=== PATIENT | male | born 1990 | race Caucasian/White ===

== ENCOUNTER 2017-03-11 11:06 | Emergency (ER) | payer OTHER | END 2017-03-11 12:22 | disposition left against medical advice (07) | LOC: UCCORT 11:06 | DX: J11.1 Influenza due to unidentified influenza virus with other respiratory manifestations (principal); Z53.21 Procedure and treatment not carried out due to patient leaving prior to being seen by health care provider ==

== ENCOUNTER 2018-04-22 10:16 | Emergency (ER) | payer BC, OTHER ==
[2018-04-22 11:02] VITALS: BP 148/88
--- NOTE | 2018-04-22 11:21 | UC ---
Ear Complaint HPI - HPI Summary HPI Summary: 28-year-old male presents with complaints of 2 days of bilateral ear pain and fullness. Today he noticed some clear to justice colored drainage from both ears. States has had 4-5 days nasal congestion prior to onset of symptoms. Denies fever, chills, hearing loss, tinnitus, dizziness, vertigo, sore throat, or cough. 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 Negative: Sore Throat, Sinus Pain/Tenderness Respiratory: Negative: Shortness Of Breath, Cough Cardiovascular: Negative: Palpitations, Chest Pain Gastrointestinal: Negative: Abdominal Pain, Vomiting, Diarrhea, Nausea Genitourinary: Positive: Negative Musculoskeletal: Positive: Negative Neurological: Positive: Negative Is Patient Immunocompromised?: No Physical Exam - Summary Physical Exam Summary: GENERAL APPEARANCE: Well developed, well nourished, alert and cooperative, and appears to be in no acute distress. EYES: Conjunctiva clear. No drainage. Vision is grossly intact. EARS: External auditory canals with small amount soft cerumen. Bilateral tympanic membranes erythematous with effusion, right worse than left. Hearing grossly intact. NOSE: Mild-moderate nasal congestion with clear nasal discharge. THROAT: Pharynx normal. No tonsilar inflammation, swelling, exudate, or lesions. Uvula midline. Oral cavity normal. Teeth and gingiva in good general condition. NECK: Neck supple, non-tender without lymphadenopathy. CARDIAC: Normal S1 and S2. No S3, S4 or murmurs. Rhythm is regular. There is no peripheral edema, cyanosis or pallor. Extremities are warm and well perfused. Capillary refill is less than 2 seconds. Peripheral pulses intact. LUNGS: Clear to auscultation without rales, rhonchi, wheezing or diminished breath sounds. ABDOMEN: Positive bowel sounds. Soft, nondistended, nontender. No guarding or rebound. No masses or hepatosplenomegally. MUSKULOSKELETAL: ROM intact to all extremities. No joint erythema or tenderness. Normal muscular development. Normal gait. SKIN: Skin normal color, texture and turgor with no lesions or eruptions. Triage Information Reviewed: Yes Vital Signs: Initial Vital Signs Temp 98 F 04/22/18 10:56 Pulse 80 04/22/18 10:56 Resp 16 04/22/18 10:56 BP 148/88 04/22/18 10:56 Pulse Ox 100 04/22/18 10:56 Vital Signs Reviewed: Yes Ear Complaint Course/Dx - Course Course Of Treatment: 28-year-old male presents with complaints of 2 days of bilateral ear pain and fullness. Today he noticed some clear to justice colored drainage from both ears. States has had 4-5 days nasal congestion prior to onset of symptoms. Denies fever, chills, hearing loss, tinnitus, dizziness, vertigo, sore throat, or cough. Afebrile. Mildly elevated blood pressure otherwise vital signs stable. Exam reveals dental male in no acute distress. Mild to moderate nasal congestion, bilateral erythematous intact TMs with effusion with a right worse than left, and otherwise unremarkable exam. Will treat for a bilateral otitis media with effusion using Augmentin 875 mg BID x 10 days and recommend symptomatic treatment for the nasal congestion with saline rinses, fluticasone nasal spray, and OTC decongestant. He does not have a primary care provider at this time therefore was given contact information for the [facility] physician referral service to help establish with a provider as well as a referral to ENT if symptoms do not improve within 5 days. Anticipatory guidance and warning symptoms reviewed with patient. Verbalizes understaning and agrees with POC. - Differential Dx/Diagnosis Differential Diagnosis/HQI/PQRI: Cerumen Impaction, Otitis Externa, Otitis Media , Perforated TM, URI Provider Diagnosis: Bilateral otitis media with effusion Discharge - Sign-Out/Discharge Documenting (check all that apply): Patient Departure All imaging exams completed and their final reports reviewed: No Studies - Discharge Plan Condition: Stable Disposition: HOME Prescriptions: Amoxicillin/Clavulanate TAB* [Augmentin TAB 875*] 875 mg PO BID #20 tab Fluticasone NASAL SPRAY 50MCG* [Flonase NASAL SPRAY 50MCG*] 2 spray BOTH NARES DAILY #1 btl Patient Education Materials: Ear Infection (ED) Referrals: No Primary Care Phys,NOPCP [Primary Care Provider] - [facility] [place] [facility]IAN REFERRAL [Outside] Haroon Mcintosh MD [Medical Doctor] - 5 Days (Follow up in 5-7 days if no improvement in symptoms.) Additional Instructions: Your exam revealed an ear infection in both ears with the right slightly worse than the left. Start Augmentin 1 tab every 12 hours for 10 days. Take with food to avoid upset stomach. Be sure to finish the entire prescription even if you are feeling better. To help with the congestion and to promote drainage: * Use a saline rinse kit such as Neti Pot or NeilMed at least twice a day to help thin secretions and promote drainage of the sinuses. * Use fluticasone (Flonase) nasal spray 2 sprays each nostril once daily. Take over the counter acetaminophen (Tylenol) or ibuprofen (Advil, Motrin) according to directions as needed for pain or fever. You may continue to an over the counter decongestant such as Sudafed according to directions as needed. Return here or follow up with a primary care provider in 2 weeks for recheck of the ears. I have provided you with the contact information for the [facility] Physician referral service if you need assistance with establishing with a primary care provider. Follow up with Dr. Mcintosh, Ear, Nose, and Throat, in 5-7 days if no improvement in symptoms. Call for an appointment. Seek immediate medical attention in the emergency room if you have fever greater than 100.5 F despite taking acetaminophen or ibuprofen, have loss of hearing, blood draining from the ear(s), have chest pain, difficulty breathing, are unable to swallow, or have any worsening of symptoms. - Billing Disposition and Condition Condition: STABLE Disposition: Home - Attestation Statements Provider Attestation: Per institutional requirements, I have reviewed the chart, however, I was not consulted specifically or made aware of this patient by the midlevel provider. I did not personally evaluate, interact with , or disposition this patient.
== END 2018-04-22 11:53 | disposition home or self-care (01) ==
LOC: UCCORT 10:16
DX: H65.93 Unspecified nonsuppurative otitis media, bilateral (principal); R09.81 Nasal congestion; R09.89 Other specified symptoms and signs involving the circulatory and respiratory systems; Z88.1 Allergy status to other antibiotic agents; Z87.891 Personal history of nicotine dependence
CPT/HCPCS: 99212; G0463